=== PATIENT | female | born 2000 | race Caucasian/White ===

== ENCOUNTER 2021-05-12 00:56 | Day surgery (SDC) | payer OTHER ==
[2021-05-12 01:29] VITALS: BMI 18.3
[2021-05-12] MEDS ORDERED: Cyclobenzaprine 10 MG TAB PO SCH (01:30)
== END 2021-05-12 03:30 | disposition home or self-care (01) ==
LOC: CSHLD/OP 00:56
PROVIDERS: ATTEND Obstetrics & Gynecology
DX: O99.891 Other specified diseases and conditions complicating pregnancy (principal); R10.2 Pelvic and perineal pain; M54.50 Low back pain, unspecified; Z3A.24 24 weeks gestation of pregnancy
CPT/HCPCS: 99282

== ENCOUNTER 2021-05-14 07:46 | Outpatient (CLI) | payer OTHER | END 2021-05-14 07:47 | disposition home or self-care (01) | LOC: CSHULT 07:46 | PROVIDERS: ATTEND Nurse Practitioner Women's Health | DX: Z34.82 Encounter for supervision of other normal pregnancy, second trimester (principal); Z3A.23 23 weeks gestation of pregnancy | CPT/HCPCS: 76805 ==

== ENCOUNTER 2021-06-15 13:21 | Day surgery (SDC) | payer OTHER ==
[2021-06-15] MEDS ORDERED: hydrALAZINE 20 MG/ML VIAL SLOW IVP PRN (15:07)
[2021-06-15] MEDS ORDERED: Ondansetron ODT 4 MG TAB SL PRN (15:11)
[2021-06-15] MEDS ORDERED: Acetaminophen 500 MG TAB PO SCH (15:15)
[2021-06-15 16:27] LABS: SARS-CoV-2 NAA Rapid Test DETECTED (NotDetected)
== END 2021-06-15 16:15 | disposition home or self-care (01) ==
LOC: CSHLD/OP 13:21
PROVIDERS: ATTEND Family Medicine
DX: O98.513 Other viral diseases complicating pregnancy, third trimester (principal); U07.1 COVID-19; O99.891 Other specified diseases and conditions complicating pregnancy; R10.2 Pelvic and perineal pain; Z3A.28 28 weeks gestation of pregnancy
CPT/HCPCS: 0240U; 99283; Q0162

== ENCOUNTER 2021-08-07 18:26 | Observation (INO) | payer OTHER ==
[2021-08-07 19:05] VITALS: BMI 20.9
[2021-08-07] MEDS ORDERED: hydrALAZINE 20 MG/ML VIAL SLOW IVP PRN ×2 (19:30→21:14)
[2021-08-07] MEDS ORDERED: Misoprostol 200 MCG TAB PR PRN (21:14)
[2021-08-07] MEDS ORDERED: Lidocaine 1% (PF) 30 ML VIAL SC PRN (21:14)
[2021-08-07] MEDS ORDERED: Promethazine HCl 25 MG/ML VIAL IM PRN ×2 (21:14→21:54)
[2021-08-07] MEDS ORDERED: Diphenoxylate HCl/Atropine Tablet PO PRN (21:14)
[2021-08-07] MEDS ORDERED: Ondansetron PF 4 MG/2 ML Vial IVP PRN ×2 (21:14→21:54)
[2021-08-07] MEDS ORDERED: Butorphanol Tartrate 1 MG/ML VIAL SLOW IVP PRN (21:14)
[2021-08-07] MEDS ORDERED: Methylergonovine 0.2 MG/ML VIAL IM PRN (21:14)
[2021-08-07] MEDS ORDERED: Carboprost 250 MCG/ML AMP IM PRN (21:14)
[2021-08-07 21:15] LABS: Bilirubin Neg (Negative); Blood, Urine Negative (Negative); Clarity Clear (Clear); Glucose, Urine (Dipstick) Normal (Negative); Ketone, Urine 150 mg/dL (Negative); Leukocyte Negative (Negative); Nitrite Negative (Negative); Protein, Urine (Dipstick) Negative (Neg-Trace); Urobilinogen Normal mg/dL (Less than 2); pH, Urine 6.5 (5.0-9.0)
[2021-08-07] MEDS ORDERED: NS w/ Oxytocin 30 units 500 ML IV SCH ×2 (21:15)
[2021-08-07] MEDS ORDERED: Lactated Ringer's 1,000 ML IV SCH (21:15)
[2021-08-07 21:17] LABS: Bacteria/HPF None Seen HPF (None Seen); RBC/HPF 0-3 HPF (0-3); Squamous Epithelial 0-3 HPF (0-3); Urine Culture Reflex No No; WBC/HPF 0-3 HPF (0-3)
[2021-08-07] MEDS ORDERED: Penicillin G Potassium 5 MILL.UNITS in Sodium Chloride 0.9% 100 ML IVPB SCH (21:30)
[2021-08-07] MEDS ORDERED: Hydrocerin (Eucerin) Cream 120 gm Jar TOP PRN (21:54)
[2021-08-07] MEDS ORDERED: Acetaminophen 325 MG TAB PO PRN (21:54)
[2021-08-07] MEDS ORDERED: Lactated Ringer's 500 ML IV PRN (21:54)
[2021-08-07] MEDS ORDERED: Naloxone HCl 0.4 mg/ml Vial IVP PRN ×2 (21:54)
[2021-08-07] MEDS ORDERED: diphenhydrAMINE 50 MG/ML VIAL IVP PRN (21:54)
[2021-08-07] MEDS ORDERED: ePHEDrine Sulfate 50 MG/10 ML VIAL SLOW IVP PRN (21:54)
[2021-08-07] MEDS ORDERED: Communication Order-Pharmacy FS SCH (22:00)
[2021-08-07] MEDS ORDERED: Fentanyl 2 mcg/Bupivacaine 0.1% Cassette 100 ML EPIDURAL SCH (22:00)
[2021-08-07 22:13] LABS: Hemoglobin 10.1 g/dL (12.0-15.5); Mean Corpuscular HGB CONC 35.7 g/dL (32.0-36.0); Mean Corpuscular Hemoglobin 31.4 pg (27.0-33.0); Mean Corpuscular Volume 87.9 fl (81.6-98.3); Mean Platelet Volume 10.6 fl (7.4-10.4); Platelet Count 290 10x3/uL (150-450); RBC Distribution Width 12.4 % (11.5-14.5); Red Blood Cell (RBC) Count 3.22 10x6/uL (3.90-5.03); White Blood Cell (WBC) Count 12.9 10x3/uL (3.5-10.5)
[2021-08-07 22:45] LABS: Hep B Surf Ag Non-Reactive S/CO (NonReactive); Syphilis Antibody Nonreactive (Nonreactive); Syphilis Antibody Index 0.04 S/CO (<1.00 Non-Reactive)
[2021-08-07 22:47] LABS: HBSAg Index 0.19 S/CO (0-0.99)
[2021-08-07] MEDS ORDERED: hydrOXYzine Pamoate 25 mg Capsule PO PRN (23:00)
[2021-08-08] MEDS: Penicillin G 2.5 MILL.units 2.5 MILL.UNITS in Premix Bag 1 BAG IVPB SCH ×2 (02:23→06:25)
== END 2021-08-08 08:30 | disposition home or self-care (01) ==
LOC: CSHLD/OP 18:26 → CSHLD 22:44 → INTOOBSV 22:44
PROVIDERS: ADMIT Family Medicine; ATTEND Family Medicine
DX: O47.03 False labor before 37 completed weeks of gestation, third trimester (principal); O09.213 Supervision of pregnancy with history of pre-term labor, third trimester; Z3A.36 36 weeks gestation of pregnancy
CPT/HCPCS: 36415; 81001; 85027; 86780; 86850; 86900; 86901; 87340; 99285; J2540; J3490; J7120

== ENCOUNTER 2021-08-13 11:42 | Inpatient (IN) | payer OTHER ==
[2021-08-13] MEDS ORDERED: Ondansetron PF 4 MG/2 ML Vial IVP PRN ×2 (12:09→13:55)
[2021-08-13] MEDS ORDERED: Diphenoxylate HCl/Atropine Tablet PO PRN (12:09)
[2021-08-13] MEDS ORDERED: Ibuprofen 800 MG TAB PO PRN (12:09)
[2021-08-13] MEDS ORDERED: hydrALAZINE 20 MG/ML VIAL SLOW IVP PRN (12:09)
[2021-08-13] MEDS ORDERED: HYDROcodone/Acetaminophen 5/325 mg Tablet PO PRN (12:09)
[2021-08-13] MEDS ORDERED: Acetaminophen 500 MG TAB PO PRN (12:09)
[2021-08-13] MEDS ORDERED: Methylergonovine 0.2 MG/ML VIAL IM PRN (12:09)
[2021-08-13] MEDS ORDERED: Promethazine HCl 25 MG/ML VIAL IM PRN ×2 (12:09→13:55)
[2021-08-13] MEDS ORDERED: Butorphanol Tartrate 1 MG/ML VIAL SLOW IVP PRN (12:09)
[2021-08-13] MEDS ORDERED: Lidocaine 1% (PF) 30 ML VIAL SC PRN (12:09)
[2021-08-13] MEDS ORDERED: Misoprostol 200 MCG TAB PR PRN (12:09)
[2021-08-13] MEDS ORDERED: Penicillin G Potassium 5 MILL.UNITS in Sodium Chloride 0.9% 100 ML IVPB SCH (12:15)
[2021-08-13] MEDS ORDERED: NS w/ Oxytocin 30 units 500 ML IV SCH ×2 (12:15)
[2021-08-13] MEDS: Lactated Ringer's 1,000 ML IV SCH ×3 (12:32→15:35)
[2021-08-13] MEDS ORDERED: Penicillin G Potassium 5 MILL.UNITS VIAL ONE (12:32)
[2021-08-13 12:40] LABS: Hemoglobin 10.3 g/dL (12.0-15.5); Mean Corpuscular HGB CONC 35.3 g/dL (32.0-36.0); Mean Platelet Volume 10.6 fl (7.4-10.4); Platelet Count 303 10x3/uL (150-450); RBC Distribution Width 12.3 % (11.5-14.5); Red Blood Cell (RBC) Count 3.32 10x6/uL (3.90-5.03); White Blood Cell (WBC) Count 10.7 10x3/uL (3.5-10.5)
[2021-08-13 12:45] VITALS: BMI 20.9
[2021-08-13] MEDS ORDERED: Fentanyl 2 mcg/Bup 0.1% Cadd 100 ML ONE (12:59)
[2021-08-13 13:13] LABS: Hep B Surf Ag Non-Reactive S/CO (NonReactive)
[2021-08-13 13:15] LABS: Syphilis Antibody Nonreactive (Nonreactive); Syphilis Antibody Index 0.05 S/CO (<1.00 Non-Reactive)
[2021-08-13 13:25] LABS: HBSAg Index 0.22 S/CO (0-0.99)
[2021-08-13] MEDS ORDERED: Lactated Ringer's 500 ML IV PRN (13:55)
[2021-08-13] MEDS ORDERED: diphenhydrAMINE 50 MG/ML VIAL IVP PRN (13:55)
[2021-08-13] MEDS ORDERED: Acetaminophen 325 MG TAB PO PRN (13:55)
[2021-08-13] MEDS ORDERED: ePHEDrine Sulfate 50 MG/10 ML VIAL SLOW IVP PRN (13:55)
[2021-08-13] MEDS ORDERED: Naloxone HCl 0.4 mg/ml Vial IVP PRN ×2 (13:55)
[2021-08-13] MEDS ORDERED: Hydrocerin (Eucerin) Cream 120 gm Jar TOP PRN (13:55)
[2021-08-13] MEDS ORDERED: Communication Order-Pharmacy FS SCH (14:00)
[2021-08-13] MEDS ORDERED: Fentanyl 2 mcg/Bupivacaine 0.1% Cassette 100 ML EPIDURAL SCH (14:00)
[2021-08-13] MEDS ORDERED: PHENYLEPHRINE-NS 100 MCG/ML 10 ML SYRINGE ONE (15:04)
[2021-08-13 15:16] LABS: SARS-CoV-2 NAA Rapid Test Not Detected (NotDetected)
[2021-08-13] MEDS: Penicillin G 2.5 MILL.units 2.5 MILL.UNITS in Premix Bag 1 BAG IVPB SCH ×2 (15:36→19:30)
[2021-08-13] MEDS ORDERED: Bupivacaine 0.25% HCL 30 ML VIAL ONE (16:00)
[2021-08-13] MEDS ORDERED: ePHEDrine Sulfate 50 MG/10 ML VIAL ONE (16:00)
[2021-08-14] MEDS ORDERED: Lanolin Ointment 7 GM TUBE TOP PRN
[2021-08-14] MEDS ORDERED: Boostrix 0.5 ML (Tdap) VIAL IM ONE
[2021-08-14] MEDS ORDERED: NS w/ Oxytocin 30 units 500 ML IV SCH
[2021-08-14] MEDS ORDERED: Bisacodyl 10 MG SUPP PR PRN
[2021-08-14] MEDS ORDERED: hydrALAZINE 20 MG/ML VIAL SLOW IVP PRN
[2021-08-14] MEDS ORDERED: Benzocaine-Menthol 82.5 ML CAN TOP PRN
[2021-08-14] MEDS ORDERED: Milk Of Magnesia 30 ML UDCUP PO PRN
[2021-08-14] MEDS ORDERED: HYDROcodone/Acetaminophen 5/325 mg Tablet PO PRN
[2021-08-14] MEDS ORDERED: Ondansetron PF 4 MG/2 ML Vial IVP PRN
[2021-08-14] MEDS: HYDROcodone/Acetaminophen 5/325 mg Tablet PO PRN (01:47)
[2021-08-14] MEDS: Ibuprofen 800 MG TAB PO SCH ×3 (05:31→21:15)
[2021-08-14] MEDS: Ferrous Sulfate 325 MG TAB PO SCH ×2 (07:13→16:11)
[2021-08-14] MEDS: Prenatal Vitamin 1 TAB PO SCH (09:10)
[2021-08-14] MEDS: Docusate 100 MG CAP PO SCH ×2 (09:10→21:15)
[2021-08-14] MEDS ORDERED: Acetaminophen 500 MG TAB PO PRN (12:50)
[2021-08-15] MEDS: HYDROcodone/Acetaminophen 5/325 mg Tablet PO PRN (04:38)
[2021-08-15] MEDS: Ibuprofen 800 MG TAB PO SCH ×2 (05:51→14:52)
[2021-08-15] MEDS: Ferrous Sulfate 325 MG TAB PO SCH (07:45)
[2021-08-15 07:49] VITALS: BP 100/55; TEMP 98.1
[2021-08-15] MEDS: Prenatal Vitamin 1 TAB PO SCH (08:54)
[2021-08-15] MEDS: Docusate 100 MG CAP PO SCH (08:54)
== END 2021-08-15 16:30 | disposition home or self-care (01) | DRG 807 ==
LOC: CSHLD 11:42 → CSHPP 23:25
PROVIDERS: ADMIT Family Medicine; ATTEND Family Medicine
PROC: 10E0XZZ Delivery of Products of Conception, External Approach (ICD-10-PCS; principal; 2021-08-14)
PROC: 10907ZC Drainage of Amniotic Fluid, Therapeutic from Products of Conception, Via Natural or Artificial Opening (ICD-10-PCS; 2021-08-14)
DX: O99.824 Streptococcus B carrier state complicating childbirth (principal); Z37.0 Single live birth; Z20.822 Contact with and (suspected) exposure to COVID-19; Z3A.39 39 weeks gestation of pregnancy
CPT/HCPCS: 85027; 86780; 86850; 86900; 86901; 87340; J2540; J2590; J3490; J7120; S0020; U0002

== ENCOUNTER 2021-08-28 20:03 | Inpatient (IN) | payer OTHER ==
[2021-08-28] MEDS ORDERED: Norepinephrine 8 MG/0.9% NS 250 ML ONE (20:11)
[2021-08-28] MEDS ORDERED: Ondansetron PF 4 MG/2 ML Vial IVP PRN (21:07)
[2021-08-28] MEDS ORDERED: Piperacillin/Tazobactam 3.375 GM in Sodium Chloride 0.9% 100 ML IVPB SCH (21:30)
[2021-08-28] MEDS ORDERED: Magnesium 2 GM/50 ML 2 GM in Premix Bag 1 BAG IVPB SCH (21:30)
[2021-08-28] MEDS ORDERED: Piperacillin/Tazobactam 4.5 GM in Sodium Chloride 0.9% 100 ML IVPB SCH (21:30)
[2021-08-28 21:34] LABS: #Monocytes 0.2 10x3/uL (0.0-1.1); #Neutrophils 8.1 10x3/uL (1.5-8.4); %Lymphocytes 6.9 % (18.0-47.0); %Monocytes 1.7 % (0.0-10.0); %Neutrophils 90.7 % (40.0-75.0); Mean Corpuscular HGB CONC 32.7 g/dL (32.0-36.0); Mean Corpuscular Hemoglobin 29.4 pg (27.0-33.0); Mean Platelet Volume 10.2 fl (7.4-10.4); Platelet Count 244 10x3/uL (150-450); RBC Distribution Width 12.8 % (11.5-14.5)
[2021-08-28 21:47] LABS: Anion Gap 12 mmol/L (10-20); BUN (Urea Nitrogen) 7 mg/dL (7.0-18.7); CK (CPK) 43 U/L (29-168); Calc. Creatinine Clearance 113 mL/min (70-130); Calcium 7.4 mg/dL (7.8-10.44); Carbon Dioxide 15 mmol/L (22-29); Chloride 111 mmol/L (98-107); Glucose 119 mg/dL (70-105); Magnesium 1.4 mg/dL (1.7-2.2); Potassium 3.3 mmol/L (3.5-5.1); Sodium 135 mmol/L (136-145)
[2021-08-28 21:54] LABS: INR-International Normal Ratio 1.2; PTT 33.7 sec (22.0-33.0); Prothrombin Time 12.7 sec (9.5-12.1)
[2021-08-28] MEDS: Clindamycin/D5W 900 MG in Premix Bag 1 BAG IVPB SCH (22:28)
[2021-08-28 22:30] LABS: Bilirubin Neg (Negative); Blood, Urine 250 (Negative); Clarity Clear (Clear); Glucose, Urine (Dipstick) Normal (Negative); Ketone, Urine 15 mg/dL (Negative); Leukocyte 100 (Negative); Nitrite Negative (Negative); Protein, Urine (Dipstick) 30 mg/dl (Neg-Trace); Specific Gravity, Urine 1.015 (1.002-1.036); Urobilinogen Normal mg/dL (Less than 2)
[2021-08-28 22:31] LABS: Urine Culture Reflex No No
[2021-08-28] MEDS: Acetaminophen 325 MG TAB PO PRN (22:40)
[2021-08-28 22:45] LABS: Bacteria/HPF Rare-Few HPF (None Seen); Squamous Epithelial None Seen HPF (0-3); WBC/HPF 0-3 HPF (0-3)
[2021-08-28] MEDS ORDERED: Potassium Phosphate 15 MMOL in Sodium Chloride 0.9% 100 ML IVPB SCH (23:00)
[2021-08-28] MEDS: Potassium Chloride 20 MEQ in Lactated Ringer's 1,000 ML IV SCH (23:14)
[2021-08-28] MEDS ORDERED: FLU VACC QS2021-22(6MOS UP)/PF 60 MCG/0.5 ML SYRINGE IM ONE (23:15)
[2021-08-29] MEDS: Piperacillin/Tazobactam 3.375 GM in Sodium Chloride 0.9% 100 ML IVPB SCH ×3 (01:54→18:07)
[2021-08-29 03:36] LABS: #Monocytes 0.1 10x3/uL (0.0-1.1); #Neutrophils 6.8 10x3/uL (1.5-8.4); %Basophils 0.1 % (0.0-2.0); %Lymphocytes 10.2 % (18.0-47.0); %Monocytes 1.4 % (0.0-10.0); %Neutrophils 87.8 % (40.0-75.0); Hemoglobin 10.2 g/dL (12.0-15.5); Mean Corpuscular HGB CONC 34.3 g/dL (32.0-36.0); Mean Corpuscular Hemoglobin 30.2 pg (27.0-33.0); Mean Corpuscular Volume 87.9 fl (81.6-98.3); Mean Platelet Volume 10.2 fl (7.4-10.4); Platelet Count 226 10x3/uL (150-450); RBC Distribution Width 12.9 % (11.5-14.5); Red Blood Cell (RBC) Count 3.38 10x6/uL (3.90-5.03); White Blood Cell (WBC) Count 7.7 10x3/uL (3.5-10.5)
[2021-08-29 03:44] LABS: Phosphorus 3.1 mg/dL (2.3-4.7)
[2021-08-29 03:50] LABS: Anion Gap 15 mmol/L (10-20); BUN (Urea Nitrogen) 6 mg/dL (7.0-18.7); Calc. Creatinine Clearance 110 mL/min (70-130); Calcium 7.3 mg/dL (7.8-10.44); Carbon Dioxide 15 mmol/L (22-29); Chloride 111 mmol/L (98-107); Glucose 116 mg/dL (70-105); Magnesium 1.9 mg/dL (1.7-2.2); Potassium 3.6 mmol/L (3.5-5.1); Sodium 137 mmol/L (136-145)
[2021-08-29] MEDS: Clindamycin/D5W 900 MG in Premix Bag 1 BAG IVPB SCH ×3 (05:07→21:42)
[2021-08-29] MEDS: Vancomycin HCl 750 MG in Sodium Chloride 0.9% 250 ML 250 ML IVPB SCH ×2 (05:07→18:19)
[2021-08-29] MEDS: Potassium Chloride 20 MEQ in Lactated Ringer's 1,000 ML IV SCH ×2 (06:38→10:40)
[2021-08-29] MEDS: Enoxaparin Sodium 40 MG/0.4 ML SYRINGE SC SCH (07:54)
[2021-08-29] MEDS: Saccharomyces boulardii 250 MG CAP PO SCH (07:54)
[2021-08-29] MEDS: Pantoprazole 40 MG VIAL IVP SCH (08:21)
[2021-08-29] MEDS: Acetaminophen 325 MG TAB PO PRN ×2 (08:41→20:35)
[2021-08-29] MEDS ORDERED: Fentanyl 100 MCG/2 ML VIAL ONE (13:29)
[2021-08-29] MEDS ORDERED: PROPOFOL 20 ML ONE (13:29)
[2021-08-29] MEDS ORDERED: PROPOFOL 40 ML ONE (13:59)
[2021-08-29] MEDS ORDERED: Silver Nitrate Application 1 EACH ONE (14:23)
[2021-08-29] MEDS ORDERED: Oxytocin 10 UNITS/ML VIAL ONE ×2 (14:28→14:33)
[2021-08-29] MEDS ORDERED: Azithromycin 500 MG in Sodium Chloride 0.9% 250 ML 250 ML IVPB SCH (14:30)
[2021-08-29] MEDS ORDERED: Oxytocin 10 UNITS/ML VIAL IM SCH (15:00)
[2021-08-30] MEDS: Potassium Chloride 20 MEQ in Lactated Ringer's 1,000 ML IV SCH ×3 (00:02→22:09)
[2021-08-30] MEDS: Vancomycin HCl 750 MG in Sodium Chloride 0.9% 250 ML 250 ML IVPB SCH ×2 (00:10→08:27)
[2021-08-30] MEDS: Piperacillin/Tazobactam 3.375 GM in Sodium Chloride 0.9% 100 ML IVPB SCH ×3 (02:18→17:42)
[2021-08-30] MEDS ORDERED: Piperacillin/Tazobactam 3.375 GM VIAL ONE ×2 (02:20)
[2021-08-30 03:49] LABS: Hemoglobin 9.3 g/dL (12.0-15.5); Mean Corpuscular HGB CONC 34.3 g/dL (32.0-36.0); Mean Corpuscular Hemoglobin 30.1 pg (27.0-33.0); Mean Corpuscular Volume 87.7 fl (81.6-98.3); Mean Platelet Volume 10.2 fl (7.4-10.4); Platelet Count 159 10x3/uL (150-450); RBC Distribution Width 13.1 % (11.5-14.5); Red Blood Cell (RBC) Count 3.09 10x6/uL (3.90-5.03); White Blood Cell (WBC) Count 2.5 10x3/uL (3.5-10.5)
[2021-08-30 04:01] LABS: Anion Gap 11 mmol/L (10-20); BUN (Urea Nitrogen) 6 mg/dL (7.0-18.7); Calc. Creatinine Clearance 123 mL/min (70-130); Calcium 7.9 mg/dL (7.8-10.44); Carbon Dioxide 18 mmol/L (22-29); Chloride 114 mmol/L (98-107); Glucose 104 mg/dL (70-105); Potassium 3.8 mmol/L (3.5-5.1); Sodium 139 mmol/L (136-145)
[2021-08-30] MEDS: Clindamycin/D5W 900 MG in Premix Bag 1 BAG IVPB SCH ×3 (06:08→22:04)
[2021-08-30 06:09] LABS: MDiff Complete? YES
[2021-08-30 06:11] LABS: Band 5 % (5-11); Lymphocytes 24 % (28-48); Metamyelocyte 1 % (0-0); Monocytes 4 % (0-4); Neutrophil 64 % (31-61); Reactive Lymphocytes 2 % (0-10)
[2021-08-30 06:12] LABS: Platelet Morphology Comment Appears Adequate; RBC Morphology Normal
[2021-08-30] MEDS: Acetaminophen 325 MG TAB PO PRN (06:32)
[2021-08-30] MEDS: Pantoprazole 40 MG VIAL IVP SCH (08:26)
[2021-08-30] MEDS: Enoxaparin Sodium 40 MG/0.4 ML SYRINGE SC SCH (08:27)
[2021-08-30] MEDS: Saccharomyces boulardii 250 MG CAP PO SCH (08:27)
[2021-08-30] MEDS ORDERED: Lanolin Ointment 7 GM TUBE TOP PRN (16:41)
[2021-08-30] MEDS: Vancomycin HCl 1 GM in Sodium Chloride 0.9% 250 ML 250 ML IVPB SCH (17:42)
[2021-08-31] MEDS: Piperacillin/Tazobactam 3.375 GM in Sodium Chloride 0.9% 100 ML IVPB SCH ×3 (01:01→17:46)
[2021-08-31] MEDS: Vancomycin HCl 1 GM in Sodium Chloride 0.9% 250 ML 250 ML IVPB SCH (01:01)
[2021-08-31] MEDS: Clindamycin/D5W 900 MG in Premix Bag 1 BAG IVPB SCH (06:05)
[2021-08-31] MEDS: Potassium Chloride 20 MEQ in Lactated Ringer's 1,000 ML IV SCH ×2 (08:37→17:46)
[2021-08-31] MEDS: Enoxaparin Sodium 40 MG/0.4 ML SYRINGE SC SCH (08:37)
[2021-08-31] MEDS: Saccharomyces boulardii 250 MG CAP PO SCH (08:38)
[2021-08-31 09:05] LABS: Hemoglobin 9.7 g/dL (12.0-15.5); Mean Corpuscular HGB CONC 34.4 g/dL (32.0-36.0); Mean Corpuscular Hemoglobin 29.8 pg (27.0-33.0); Mean Corpuscular Volume 86.5 fl (81.6-98.3); Mean Platelet Volume 11.3 fl (7.4-10.4); Platelet Count 182 10x3/uL (150-450); RBC Distribution Width 13.3 % (11.5-14.5); Red Blood Cell (RBC) Count 3.26 10x6/uL (3.90-5.03); White Blood Cell (WBC) Count 2.1 10x3/uL (3.5-10.5)
[2021-08-31 09:08] LABS: Anion Gap 12 mmol/L (10-20); BUN (Urea Nitrogen) 4 mg/dL (7.0-18.7); Calc. Creatinine Clearance 116 mL/min (70-130); Calcium 8.4 mg/dL (7.8-10.44); Carbon Dioxide 21 mmol/L (22-29); Chloride 108 mmol/L (98-107); Glucose 95 mg/dL (70-105); Potassium 3.5 mmol/L (3.5-5.1); Sodium 137 mmol/L (136-145)
[2021-08-31 09:39] LABS: MDiff Complete? YES
[2021-08-31 09:46] LABS: Band 2 % (5-11); Eosinophils 2 % (0-10); Lymphocytes 61 % (28-48); Monocytes 9 % (0-4); Neutrophil 25 % (31-61)
[2021-08-31 09:47] LABS: Platelet Morphology Comment Appears Adequate; RBC Morphology Normal
[2021-08-31 10:20] VITALS: BMI 19.2
[2021-09-01] MEDS: Piperacillin/Tazobactam 3.375 GM in Sodium Chloride 0.9% 100 ML IVPB SCH ×2 (01:48→08:25)
[2021-09-01] MEDS: Potassium Chloride 20 MEQ in Lactated Ringer's 1,000 ML IV SCH ×2 (02:01→08:24)
[2021-09-01] MEDS: Saccharomyces boulardii 250 MG CAP PO SCH (08:25)
[2021-09-01] MEDS: Enoxaparin Sodium 40 MG/0.4 ML SYRINGE SC SCH (08:26)
[2021-09-01 08:36] VITALS: BP 119/68; TEMP 97.6
== END 2021-09-01 11:08 | disposition home or self-care (01) | DRG 769 ==
LOC: CSHICU 20:03 → CSHIMCU 20:09 → CSHPP 08-30 10:52
PROVIDERS: ADMIT Internal Medicine; ATTEND Internal Medicine
PROC: 3E033XZ Introduction of Vasopressor into Peripheral Vein, Percutaneous Approach (ICD-10-PCS; principal; 2021-08-28)
PROC: 3E03329 Introduction of Other Anti-infective into Peripheral Vein, Percutaneous Approach (ICD-10-PCS; 2021-08-28)
PROC: 10D17Z9 Manual Extraction of Products of Conception, Retained, Via Natural or Artificial Opening (ICD-10-PCS; 2021-08-29)
DX: O85 Puerperal sepsis (principal); R65.21 Severe sepsis with septic shock; O72.2 Delayed and secondary postpartum hemorrhage; E87.6 Hypokalemia; E83.42 Hypomagnesemia; E83.39 Other disorders of phosphorus metabolism; O99.285 Endocrine, nutritional and metabolic diseases complicating the puerperium; Z79.899 Other long term (current) drug therapy; O99.825 Streptococcus B carrier state complicating the puerperium
CPT/HCPCS: 36415; 71045; 76856; 80048; 80202; 81001; 82550; 83605; 83735; 84100; 85025; 85610; 85730; 87081; 87086; 87324; 87430; 87449; 88305; C9113; J1650; J2543; J2590; J2704; J3010; J3370; J3475; J3480; J3490; J7050; J7120

== ENCOUNTER 2021-12-30 11:46 | Emergency (ER) | payer OTHER ==
[2021-12-30 12:41] LABS: Hemoglobin 12.6 g/dL (12.0-15.5); Mean Corpuscular HGB CONC 34.5 g/dL (32.0-36.0); Mean Corpuscular Hemoglobin 28.7 pg (27.0-33.0); Mean Corpuscular Volume 83.1 fl (81.6-98.3); Mean Platelet Volume 10.8 fl (7.4-10.4); Platelet Count 269 10x3/uL (150-450); RBC Distribution Width 14.6 % (11.5-14.5); Red Blood Cell (RBC) Count 4.39 10x6/uL (3.90-5.03); White Blood Cell (WBC) Count 7.8 10x3/uL (3.5-10.5)
[2021-12-30 12:44] LABS: ALT (SGPT) 11 U/L (8-55); AST (SGOT) 17 U/L (5-34); Albumin 4.3 g/dL (3.5-5.0); Alkaline Phosphatase 87 U/L (40-100); Anion Gap 12 mmol/L (10-20); BUN (Urea Nitrogen) 7 mg/dL (7.0-18.7); Bilirubin, Total 0.8 mg/dL (0.2-1.2); Calc. Creatinine Clearance 0 mL/min (70-130); Calcium 9.7 mg/dL (7.8-10.44); Carbon Dioxide 22 mmol/L (22-29); Chloride 105 mmol/L (98-107); Estimated GFR 127; Globulin 3.3 g/dL (2.4-3.5); Glucose 79 mg/dL (70-105); Potassium 3.9 mmol/L (3.5-5.1); Protein, Total 7.6 g/dL (6.0-8.3); Sodium 135 mmol/L (136-145)
[2021-12-30] MEDS ORDERED: Acetaminophen 500 MG TAB ONE (13:12)
[2021-12-30 13:17] LABS: Bilirubin Neg (Negative); Blood, Urine Negative (Negative); Clarity Clear (Clear); Glucose, Urine (Dipstick) Normal (Negative); Ketone, Urine Negative (Negative); Leukocyte Negative (Negative); Nitrite Negative (Negative); Protein, Urine (Dipstick) Negative (Neg-Trace); Urobilinogen Normal mg/dL (Less than 2)
[2021-12-30 14:06] LABS: Band 4 % (5-11); Eosinophils 1 % (0-10); Lymphocytes 21 % (28-48); Monocytes 14 % (0-4); Neutrophil 55 % (31-61); Reactive Lymphocytes 5 % (0-10)
[2021-12-30 14:09] LABS: Anisocytosis SLIGHT = 6-15 cells (100X) (0-5/hpf); Microcytosis SLIGHT = 6-15 cells (100X) (0-5/hpf)
[2021-12-30 14:10] LABS: MDiff Complete? YES; Ovalocytes SLIGHT = 2-5 cells (100X) (0-1/hpf); Platelet Morphology Comment Appears Adequate
== END 2021-12-30 15:06 | disposition home or self-care (01) ==
LOC: CSHERS 11:46
DX: O20.0 Threatened abortion (principal); Z3A.01 Less than 8 weeks gestation of pregnancy
CPT/HCPCS: 36415; 76856; 80053; 81003; 84702; 85025; 86900; 86901